=== PATIENT | female | born 1945 | race Caucasian/White ===

== ENCOUNTER → 2023-06-18 | Outpatient (REF) | payer OTHER, SELFPAY | LOC: DHSLP | PROVIDERS: ATTENDING PHYSICIAN Internal Medicine Critical Care Medicine; FAMILY PHYSICIAN Family Medicine | DX: G47.33 Obstructive sleep apnea (adult) (pediatric) (principal) | CPT/HCPCS: 95800 ==

== ENCOUNTER 2024-04-21 03:57 | Emergency (ER) | payer OTHER, SELFPAY ==
[2024-04-21 03:59] VITALS: BP 159/82
[2024-04-21 04:58] VITALS: BP 131/80
[2024-04-21 05:00] VITALS: BP 122/74
[2024-04-21 06:00] VITALS: BP 132/76; BMI 30.3
[2024-04-21 06:20] LABS: % Basophils 0.3 % (0-2); % Immature Granulocytes 0.3 % (0-0.5); % Lymphocytes 8.3 % (20.5-51.1); % Monocytes 5.9 % (1.7-9.3); % Neutrophils 83.2 % (42.2-75.2); Absolute Eosinophils 0.3 10^3/uL (0-0.7); Absolute Monocytes 0.7 10^3/uL (0.1-0.6); Absolute Neutrophils 10.4 10^3/uL (1.4-6.5); Hematocrit 39.5 % (37.0-47.0); Hemoglobin 13.3 g/dL (12.0-16.0); Mean Corp Hgb Conc. 33.7 g/dL (33.0-37.0); Mean Corpuscular Hgb 30.2 pg (27.0-31.0); Mean Corpuscular Volume 89.6 fL (81.0-99.0); Mean Platelet Volume 10.2 fL (7.4-10.4); Nucleated Red Blood Cells % 0 %; Platelet Count 297 10^3/uL (130-400); Red Blood Cell Count 4.41 10^6/uL (4.20-5.40); Red Cell Dist. Width 13.4 % (11.5-14.5); White Blood Cell Count 12.5 10^3/uL (4.8-10.8)
[2024-04-21] MEDS: ROBITUSSIN AC 10 ML PO (06:36)
[2024-04-21] MEDS: VENTOLIN NEBULES 2.5 MG INH (06:36)
[2024-04-21 06:37] LABS: ALT (SGPT) 20 U/L (0-35); AST (SGOT) 19 U/L (14-36); Albumin 4.2 g/dl (3.5-5.0); Alkaline Phosphatase 83 U/L (38-126); Blood Urea Nitrogen 22 mg/dl (7-17); Calcium 9.2 mg/dl (8.4-10.2); Carbon Dioxide 26 mmol/L (22-30); Chloride 104 mmol/L (98-107); Estimated Creatinine Clearance 65 ml/min; Glucose 122 mg/dl (70-99); Potassium 3.7 mmol/L (3.5-5.1); Sodium 139 mmol/L (135-145); Total Bilirubin 0.6 mg/dl (0.2-1.3); Total Protein 6.5 g/dl (6.3-8.2); eGFR > 60.00
[2024-04-21 06:40] LABS: COVID-19 Antigen Negative (Negative)
[2024-04-21 07:00] VITALS: BP 122/73
--- NOTE | 2024-04-21 07:15 | ED.GENMED ---
History of Present Illness
General
Chief Complaint: Breathing Problem
Source: patient
Exam Limitations: none
Time Seen by Provider: 04/21/24 06:04
Nursing documentation reviewed up to this point in time: agreed with
History of Present Illness
History of Present Illness:
Patient presents to ED secondary to intermittent cough over the past 4 days. This morning, she woke up from sleep with extreme difficulty with breathing. Patient proceeded to give herself a breathing treatment, with improvement in symptoms.
Denies fever or chills. Denies chest pain. Denies back pain. Denies leg pain or swelling. Denies recent travel or surgery. Denies sick contact. However, patient does report having attended football game prior to onset of her symptoms. Denies
previous history of similar symptoms. Denies recent change in medications or diet.
Past History
Past History
ED Past Medical History: Hypothyroidism, Other (Multiple sclerosis) and Other (Polymyalgia rheumatica for which she is on steroids)
ED Past Surgical History: None
Patient has exhibited threatening behavior?: No
Social History
Tobacco: Non-smoker
Alcohol: Occasional
Personal:
Living: with family
Employment: Retired
Family History
Family History: Negative Diabetes, Hypertension or CAD
Review of Systems
Review of Systems
Allergies reviewed?: Yes
All Other Systems: ROS reviewed and negative except as documented in HPI and ROS
Constitutional: Reports no symptoms; Denies fever or chills
EENT: Reports no symptoms
Respiratory: Reports cough and trouble breathing
Cardiac: Reports no symptoms
ABD/GI: Reports no symptoms; Denies vomiting or diarrhea
Musculoskeletal: Reports no symptoms
Skin: Reports no symptoms
Neurological: Reports no symptoms
Phy Exam
Physical Exam
Physical Exam:
Physical Exam
General: no apparent distress, not acutely ill. afebrile.
Head: nc/at. eomi
Neck: supple. normal range of motion.
Heart: s1/s2 regular rate and rhythm, no murmur. equal radial pulses.
Lungs: no acute respiratory distress. diminished breath sounds bilaterally
Abdomen: normal bowel sounds. not tender.
Neuro: alert and oriented. no focal neurological deficits
Skin: no rash
Psychiatric: well kept. interactive and cooperative
Extremities: no edema. no calf tenderness.
Scores
Heart Failure Risk
Heart Failure Risk Score: Not Applicable
Course
Orders/Labs/Results
Orders:
Orders
04/21/24 05:07
CR Chest - 2 Views Urgent
Comment:
Reason For Exam: cough
04/21/24 05:56
COVID-19 Antigen Urgent
Source: Nasal Swab
Complete Blood Count/With Diff Urgent
Comprehensive Metabolic Panel Urgent
Influenza A+B Rapid Molecular Urgent
[place] Source: Nasal Swab
Specimen Description:
04/21/24 06:21
Albuterol Nebs [Ventolin Nebules] 2.5 mg INH R NOW STA
Guaifenesin/Codeine Solution [Robitussin AC] 10 ml PO NOW STA
04/21/24 07:34
Azithromycin [Zithromax] 500 mg PO NOW STA
Prednisone [Deltasone] 50 mg PO NOW STA
Abnormal Lab Results
04/21/24
05:56
WBC 12.5 H 10^3/uL
(4.8-10.8)
Absolute Neuts (auto) 10.4 H 10^3/uL
(1.4-6.5)
Absolute Lymphs (auto) 1.0 L 10^3/uL
(1.2-3.4)
Absolute Monos (auto) 0.7 H 10^3/uL
(0.1-0.6)
Neutrophils % 83.2 H %
(42.2-75.2)
Lymphocytes % 8.3 L %
(20.5-51.1)
BUN 22 H mg/dl
(7-17)
Glucose 122 H mg/dl
(70-99)
04/21/24 05:56
04/21/24 05:56
Vital Signs
Initial and Last Documented VS:
Initial Vital Signs
Temp Pulse Resp BP Pulse Ox
98.3 F 77 22 159/82 96
04/21/24 03:59 04/21/24 03:59 04/21/24 03:59 04/21/24 03:59 04/21/24 03:59
Last Documented Vital Signs
Temp Pulse Resp BP Pulse Ox
98.3 F 69 14 122/73 93
04/21/24 03:59 04/21/24 07:45 04/21/24 07:45 04/21/24 07:00 04/21/24 07:45
MDM/Problems Addressed
MDM/Problems Addressed:
Chest x-ray: No acute findings. History and exam consistent with likely acute bronchitis, virally mediated. Patient reports improved symptoms after treatment. Patient will be treated conservatively with a Z-Oscar, prednisone, inhaler, along with
cough medication. Advised PCP follow-up for reevaluation, or return to ED with worsening symptoms. Patient expresses understanding, at time of discharge, to the care of her spouse. Patient is afebrile, hemodynamically stable, and without any
acute respiratory distress at time of discharge.
*Critical Care Note
Total Time (30-74mins, 75-104mins- exclusive of procedures): Not Applicable
ED Attending Note
-
Portions of this chart may have been created with voice recognition software.� Occasional wrong word or��sound alike� substitutions may have occurred due to the inherent limitations of voice recognition software.
Discharge Plan
Departure
Patient Disposition: Home (Routine Discharge)
Date of Disposition: 04/21/24
Time of Disposition: 07:36
Patient with high blood pressure during this ER visit?: Yes
Condition: Good
Discharge Problem:
Acute bronchitis
Instructions: Acute Bronchitis, Adult (DC)
Prescriptions:
New
albuterol sulfate [Ventolin HFA] 90 mcg/actuation HFA aerosol inhaler
2 puff inhalation Q6H PRN (Reason: shortness of breath or wheezing) Qty: 8.5 0RF
prednisone 50 mg tablet
50 mg PO DAILY Qty: 2 0RF
azithromycin [Zithromax] 250 mg tablet
250 mg PO DAILY 4 Days Qty: 4 0RF
benzonatate 100 mg capsule
100 mg PO TID PRN (Reason: Cough) Qty: 20 0RF
No Action
levothyroxine 150 MCG tablet
150 mcg PO DAILY
cholecalciferol (vitamin D3) [Vitamin D3] 2,000 UNIT capsule
1 cap PO DAILY
hydrochlorothiazide 25 MG tablet
25 mg PO DAILY
oxycodone-acetaminophen 5 MG/325 MG tablet
2 tab PO Q4HPRN PRN (Reason: moderate pain.) 0RF
aspirin 325 MG tablet,delayed release (DR/EC)
325 mg PO DAILY 0RF
metronidazole 500 MG tablet
500 mg PO TID Qty: 21 0RF
levofloxacin 500 MG tablet
500 mg PO DAILY Qty: 7 0RF
hydrocodone-acetaminophen [Vicodin] 1 EACH tablet
1 ea PO Q4HPRN PRN (Reason: pain) Qty: 10 0RF
famotidine 20 MG tablet
20 mg PO BID Qty: 28 0RF
Rx Instructions:
Take 20 mg twice a day for 14 days
ascorbic acid (vitamin C) [Vitamin C] 500 MG tablet
1,000 mg PO BID Qty: 56 0RF
Rx Instructions:
Take 1,000 mg twice a day for 14 days
zinc sulfate 220 MG capsule
220 mg PO DAILY Qty: 14 0RF
Rx Instructions:
Take 220 mg daily for 14 days
cholecalciferol (vitamin D3) 1,000 UNITS tablet
2,000 units PO DAILY Qty: 28 0RF
Rx Instructions:
Take 2,000 units daily for 14 days
melatonin 5 MG tablet
5 mg PO HS Qty: 14 0RF
Rx Instructions:
Take 5 mg daily at bedtime for 14 days
albuterol sulfate 1 PUFF HFA aerosol inhaler
2 puff inhalation R Q4HPRN PRN (Reason: cough) Qty: 1 1RF
Referrals:
Frank Giron MD [Family Provider] -
Activity Restrictions/Additional Instructions:
As discussed, please follow-up with your primary care physician for reevaluation next week. Your prescriptions have been sent electronically to [facility] pharmacy in [place]
Interventions
Interventions:
*Risk Screen - Suicide Last Done: 04/21/24 04:29
*General Assessment Last Done: 04/21/24 07:07
*Neglect/Abuse Screening Last Done: 04/21/24 04:29
ED- Fall Risk Assessment Last Done: 04/21/24 07:07
*ED COVID-19 Vaccine History Last Done: 04/21/24 04:29
*Nursing Disposition Last Done: 04/21/24 07:57
ED- Cardiac Assessment Last Done: 04/21/24 06:00
ED- Pulmonary Assessment Last Done: 04/21/24 06:00
Discharge Date and Time
Discharge Date/Time: 04/21/24 07:59
Print Language: HEBREW
[2024-04-21] MEDS: ZITHROMAX 500 MG PO (07:52)
[2024-04-21] MEDS: DELTASONE 50 MG PO (07:52)
== END 2024-04-21 07:59 | disposition home or self-care (01) ==
LOC: EMR 03:57
PROVIDERS: Student in an Organized Health Care Education/Training Program; EMERGENCY PHYSICIAN Emergency Medicine; FAMILY PHYSICIAN Family Medicine
DX: J20.9 Acute bronchitis, unspecified (principal); R03.0 Elevated blood-pressure reading, without diagnosis of hypertension
CPT/HCPCS: 99284; 94640; 71046; 80053; 85025; 87502; 87811

== ENCOUNTER → 2024-06-04 10:42 | Outpatient (REF) | payer OTHER, SELFPAY | LOC: MRI 3T 10:42 | PROVIDERS: ATTENDING PHYSICIAN Student in an Organized Health Care Education/Training Program; FAMILY PHYSICIAN Family Medicine | DX: M79.671 Pain in right foot (principal) | CPT/HCPCS: 73718 ==

== ENCOUNTER → 2024-08-04 12:25 | Outpatient (REF) | payer OTHER, SELFPAY ==
[2024-08-04 16:17] LABS: ALT (SGPT) 26 U/L (0-35); AST (SGOT) 25 U/L (14-36); Albumin 4.8 g/dl (3.5-5.0); Alkaline Phosphatase 135 U/L (38-126); Blood Urea Nitrogen 19 mg/dl (7-17); Calcium 10.2 mg/dl (8.4-10.2); Carbon Dioxide 27 mmol/L (22-30); Chloride 104 mmol/L (98-107); Glucose 90 mg/dl (70-99); Potassium 4.4 mmol/L (3.5-5.1); Sodium 141 mmol/L (135-145); Total Bilirubin 0.6 mg/dl (0.2-1.3); Total Protein 7.2 g/dl (6.3-8.2); eGFR > 60.00
== END ==
LOC: HWLAB 12:25
PROVIDERS: ATTENDING PHYSICIAN Family Medicine
DX: H49.11 Fourth [trochlear] nerve palsy, right eye (principal); R51.9 Headache, unspecified
CPT/HCPCS: 36415; 80053

== ENCOUNTER → 2024-08-05 11:06 | Outpatient (REF) | payer OTHER, SELFPAY | LOC: RAD 11:06 | PROVIDERS: ATTENDING PHYSICIAN Family Medicine | DX: H49.11 Fourth [trochlear] nerve palsy, right eye (principal); R51.9 Headache, unspecified | CPT/HCPCS: 70482; Q9967 ==

== ENCOUNTER 2025-04-09 09:15 | Emergency (ER) | payer OTHER, SELFPAY ==
[2025-04-09 09:23] VITALS: BP 168/101
--- NOTE | 2025-04-09 10:05 | ED.GENMED ---
History of Present Illness
General
Chief Complaint: Cold/Flu/URI Symptoms
Source: patient
Exam Limitations: none
Time Seen by Provider: 04/09/25 09:52
History of Present Illness
History of Present Illness:
79-year-old female presents complaining of sinus pain fatigue cough vomiting loose stools. She has been sick in someway since the middle of March. She was thought clinically to have pneumonia and was treated with antibiotics and steroids. She
then did not agree with 1 the antibiotics and she was switched to amoxicillin and also found to have a UTI. She was started on doxycycline. She got a little bit better with initial treatment however symptoms are returned. She notes a slight
cough. No other complaints at this time.
Past History
Past History
ED Past Medical History: Hypothyroidism, Other (Multiple sclerosis) and Other (Polymyalgia rheumatica for which she is on steroids)
ED Past Surgical History: None
Patient has exhibited threatening behavior?: No
Social History
Tobacco: Non-smoker
Alcohol: Occasional
Personal:
Living: with family
Employment: Retired
Family History
Family History: Negative Diabetes, Hypertension or CAD
Phy Exam
Physical Exam
Physical Exam:
General: Well-appearing female no acute respiratory distress
HEENT: Normal cephalic atraumatic posterior pharynx patent no erythema or exudate neck is supple adenopathy no significant tenderness over the sinuses
Heart: Regular rate and rhythm
Lungs: Clear no wheeze
Abdomen is soft nontender nondistended extremities: No cyanosis or edema
Neurologic exam: Alert no meningeal signs
Skin is warm no rash
Course
Orders/Labs/Results
Orders:
Orders
04/09/25 10:02
0.9% Sodium Chloride 1000 ml [Nss] 1,000 ml IV BOLUS
CR Chest - 2 Views Urgent
Comment:
Reason For Exam: cough
04/09/25 10:08
Ondansetron Injectable [Zofran] 4 mg IV NOW STA
04/09/25 10:18
Complete Blood Count/With Diff Urgent
Comprehensive Metabolic Panel Urgent
Urinalysis Reflex To Culture Urgent
Date Specimen was Collected: 04/09/25
Time Specimen was Collected: 10:07
Urine Microscopic Reflex Cult Urgent
04/09/25 10:25
Acetaminophen [Tylenol] 650 mg PO NOW STA
04/09/25 13:03
CT Head W/o Iv Contrast Urgent
Comment:
Reason For Exam: headache
Diphenhydramine [Benadryl] 25 mg IV NOW STA
Prochlorperazine [Compazine] 10 mg IV NOW STA
Abnormal Lab Results
04/09/25
10:18
MPV 10.5 H fL
(7.4-10.4)
Abs Immat Gran (auto) 0.1 H 10^3/uL
(0-0.05)
Absolute Lymphs (auto) 1.0 L 10^3/uL
(1.2-3.4)
Immature Gran % 0.9 H %
(0-0.5)
Neutrophils % 77.9 H %
(42.2-75.2)
Lymphocytes % 14.3 L %
(20.5-51.1)
Sodium 134 L mmol/L
(135-145)
Chloride 108 H mmol/L
(98-107)
Creatinine 0.5 L mg/dL
(0.6-1.0)
Glucose 117 H mg/dl
(70-99)
Urine RBC 3-6 A /HPF
(0-2)
Urine Bacteria (Reflex) Few A
(Negative)
Urine Albumin (Reflex) 2+ A
(Neg - Trace)
04/09/25 10:18
04/09/25 10:18
Vital Signs
Initial and Last Documented VS:
Initial Vital Signs
Temp Pulse Resp BP Pulse Ox
98.3 F 63 16 168/101 98
04/09/25 09:23 04/09/25 09:23 04/09/25 09:23 04/09/25 09:23 04/09/25 09:23
Last Documented Vital Signs
Temp Pulse Resp BP Pulse Ox
98.6 F 68 16 131/82 99
04/09/25 14:24 04/09/25 14:24 04/09/25 14:24 04/09/25 14:24 04/09/25 14:24
MDM/Problems Addressed
Differential Diagnosis Includes:
Patient with ongoing URI symptoms. She has been tested for COVID recently. She notes also diarrhea and vomiting. Question dehydration or electrolyte abnormality. Will check chest x-ray urinalysis and labs. Fluids and Zofran ordered.
*Pulse Oximetry
SaO2: 98
Oxygen Mode of Delivery: Room air
Patient hypoxic: no
*Critical Care Note
Total Time (30-74mins, 75-104mins- exclusive of procedures): Not Applicable
Update Note
Update Note:
Patient reevaluated still with headache. Given persistence of headache, CT of the head was ordered which was negative for acute finding. She was treated with a migraine cocktail including Benadryl and Compazine and this significantly improved her
symptoms. At this point she is on 2 different antibiotics do not feel the need for another. Urine culture is pending but again she just finished an antibiotic. No do not feel that she has an active urinary tract infection. Suspect underlying
viral illness. No indication for admission. Stable
ED Attending Note
-
Portions of this chart may have been created with voice recognition software.� Occasional wrong word or��sound alike� substitutions may have occurred due to the inherent limitations of voice recognition software.
Discharge Plan
Departure
Patient Disposition: Home (Routine Discharge)
Date of Disposition: 04/09/25
Time of Disposition: 14:27
Patient with high blood pressure during this ER visit?: No
Discharge Problem:
Acute viral syndrome
Instructions: Viral Syndrome (DC)
Prescriptions:
No Action
levothyroxine 150 MCG tablet
150 mcg PO DAILY
cholecalciferol (vitamin D3) [Vitamin D3] 2,000 UNIT capsule
1 cap PO DAILY
aspirin 325 MG tablet,delayed release (DR/EC)
325 mg PO DAILY 0RF
Referrals:
Frank Giron MD [Family Provider, [facility]]
Activity Restrictions/Additional Instructions:
Rest. Drink plenty of fluids. Return here for worsening symptoms otherwise follow-up with your doctor
Interventions
Interventions:
*Risk Screen - Suicide Last Done: 04/09/25 09:23
*General Assessment Last Done: 04/09/25 09:23
*Neglect/Abuse Screening Last Done: 04/09/25 09:23
*ED COVID-19 Vaccine History Last Done: 04/09/25 10:25
*ED Influenza Vaccine History Last Done: 04/09/25 10:25
[facility] Fall Risk Assessment Tool Last Done: 04/09/25 10:26
ED- Pulmonary Assessment Last Done: 04/09/25 10:25
Discharge Date and Time
Print Language: NAURUAN
[2025-04-09 10:14] VITALS: BP 167/88
[2025-04-09 10:25] VITALS: BMI 29.3
[2025-04-09 10:26] VITALS: BP 167/88
[2025-04-09] MEDS: ZOFRAN 4 MG IV (10:30)
[2025-04-09 10:31] LABS: Hematocrit 40.8 % (37.0-47.0); Hemoglobin 14.0 g/dL (12.0-16.0); Mean Corp Hgb Conc. 34.3 g/dL (33.0-37.0); Mean Corpuscular Volume 86.8 fL (81.0-99.0); Nucleated Red Blood Cells % 0 %; Platelet Count 286 10^3/uL (130-400); Red Cell Dist. Width 12.9 % (11.5-14.5)
[2025-04-09] MEDS: TYLENOL 650 MG PO (10:31)
[2025-04-09] MEDS: NSS 1000 IV (10:31)
[2025-04-09 10:34] LABS: Urine Character Clear (Clear)
[2025-04-09 10:43] LABS: Urine White Cell 0-2 /HPF (0-5)
[2025-04-09 10:44] LABS: ALT (SGPT) 33 U/L (0-35); AST (SGOT) 27 U/L (14-36); Albumin 3.8 g/dl (3.5-5.0); Alkaline Phosphatase 126 U/L (38-126); Blood Urea Nitrogen 12 mg/dl (7-17); Calcium 9.2 mg/dl (8.4-10.2); Carbon Dioxide 24 mmol/L (22-30); Chloride 108 mmol/L (98-107); Estimated Creatinine Clearance 73 ml/min; Glucose 117 mg/dl (70-99); Potassium 3.9 mmol/L (3.5-5.1); Sodium 134 mmol/L (135-145); Total Protein 6.4 g/dl (6.3-8.2); eGFR > 60.00
[2025-04-09] MEDS: COMPAZINE 10 MG IV (13:22)
[2025-04-09] MEDS: BENADRYL 25 MG IV (13:22)
[2025-04-09 14:24] VITALS: BP 131/82
== END 2025-04-09 14:42 | disposition home or self-care (01) ==
LOC: EMR 09:15
PROVIDERS: Physician Assistant; EMERGENCY PHYSICIAN Emergency Medicine; FAMILY PHYSICIAN Family Medicine
DX: B34.9 Viral infection, unspecified (principal); E03.9 Hypothyroidism, unspecified; G35.D Multiple sclerosis, unspecified; M35.3 Polymyalgia rheumatica
CPT/HCPCS: 99284; 96374; 96375; 96361; 70450; 71046; 80053; 81003; 81015; 85025